=== PATIENT | female | born 1940 | race Caucasian/White ===

== ENCOUNTER 2017-09-22 06:45 | Day surgery (SDC) | payer MEDICARE ==
[2017-09-19 09:09] VITALS: BMI 23.1
[~2017-09-22 06:45] MED LIST: FLU VACC TS2017-18 (>65YR) 0.5 ML SYRINGE IM ONE
[2017-09-22 07:37] VITALS: BP 117/63; TEMP 97.2
--- NOTE | 2017-09-22 09:10 | RAD ---
3 VIEW CERVICAL SPINE SERIES: Date: 09/22/17 TECHNIQUE: Neutral lateral view, and lateral flexion and extension views performed per ordering physician reques t. Frontal view not provided, which limits assessment. INDICATION: Cervical stenosis, spondylosis. FINDINGS: There is reversal of normal cervical curvature, with focal kyphosis centered at C4. There is trace sp ondylolisthesis at C3-4 and mild retrolisthesis of C4 on C5. With extension positioning, there is cor rection of the trace C3-4 level spondylolisthesis. There is moderate multilevel degenerative change w hich is most pronounced at C4-5. IMPRESSION: 1. Reversal of normal cervical lordosis. 2. Trace spondylolisthesis of C3-4 with associated translational motion. POS: [facility]
--- NOTE | 2017-09-22 11:00 | CT ---
CT OF THE CERVICAL SPINE MYELOGRAM CT CERVICAL SPINE WITH CONTRAST: CLINICAL HISTORY: Cervical radiculopathy, chronic neck and back pain. COMPARISON: No prior imaging comparisons are available. FINDINGS: There is multilevel degenerative change throughout the cervical spine with reversed curvature and a f ocal kyphosis centered at C4. There is trace spondylolisthesis at C3-4 and moderate listhesis at C4- 5. Multilevel end plate degenerative change with associated sclerosis and degenerative cyst formatio n present most pronounced at C4-5. Degenerative hypertrophy at the atlantodental articulation is pre sent. No high-grade central canal stenosis at C1-2. C2-3: No significant central canal or neural foraminal stenosis. There is asymmetric moderate left facet degenerative hypertrophy. C3-4: Broad-based disk-osteophyte and uncinate process hypertrophy are present with mild osseous dyan rowing of the neural foramen. There is asymmetric moderate right degenerative facet hypertrophy. Mi ld ventral cord flattening and central canal narrowing present. C4-5: There is moderate central canal stenosis with ventral cord mass effect more notable on the rig ht due to a right asymmetric disk-osteophyte. There is also evidence of uncinate process hypertrophy which results in mild to moderate right and moderate left neural foraminal stenosis. C5-6: There is moderate central canal stenosis and ventral cord flattening due to a broad-based disk -osteophyte formation. There asymmetric right side uncinate process hypertrophy with moderate right and mild to moderate left foraminal stenosis. C6-7: There is no high-grade central canal stenosis. Uncinate process hypertrophy is present bilate rally with mild bilateral osseous narrowing of the neural foramen. C7-T1: No high-grade central canal or neural foraminal stenosis. IMPRESSION: Multilevel prominent degenerative change of the cervical spine as outlined above, which does result i n multilevel cord mass effect, central canal and neural foraminal stenosis. POS: [facility]
--- NOTE | 2017-09-22 11:06 | RAD ---
CERVICAL SPINE MYELOGRAM INDICATION: Cervical stenosis, spondylosis, chronic and back pain. PROCEDURE: After informed consent had been obtained, the patient was escorted to the interventional suite and pl aced on the procedural table. Network Engineer Administrator imaging was performed. The patient was placed into a prone posi tion. Skin on the low back was then prepped and draped in the standard sterile fashion and topical a nd regional soft tissue anesthesia was achieved with 1% lidocaine and sodium bicarbonate. Right int erlaminar L4-5 approach was selected, and a 22 gauge needle was uneventfully advanced into the thecal sac with clear color CSF. Subsequently, 10 cc [id number]-M300 was instilled into the thecal sac under r eal time fluoroscopy. Appropriate opacification of thecal sac demonstrated with imaging stored for c onfirmation. The needle was then removed from the patient. The patient tolerated the procedure well and was then transferred to CT to undergo subsequent myelogram. Reference separate report for full details. FLUORO DATA: 0.4 minutes intermittent fluoroscopy, 64 mGy*^m2. IMPRESSION: Technically successful cervical spine myelogram as detailed above. POS: [facility]
[2017-09-22] MEDS ORDERED: Iopamidol-M 300 61% 15 ML VIAL ONE (16:34)
== END 2017-09-22 10:10 | disposition home or self-care (01) ==
LOC: RAD 06:45
PROVIDERS: ATTEND Neurological Surgery
PROC: B01B1ZZ Fluoroscopy of Spinal Cord using Low Osmolar Contrast (ICD-10-PCS; principal; 2017-09-22)
DX: M48.02 Spinal stenosis, cervical region (principal); M47.12 Other spondylosis with myelopathy, cervical region; M54.9 Dorsalgia, unspecified; G89.29 Other chronic pain; I48.91 Unspecified atrial fibrillation; I34.1 Nonrheumatic mitral (valve) prolapse; Z79.82 Long term (current) use of aspirin; Z79.890 Hormone replacement therapy; Z79.899 Other long term (current) drug therapy; Z88.0 Allergy status to penicillin
CPT/HCPCS: 62302; 72040; 72126

== ENCOUNTER 2017-10-28 07:56 | Inpatient (IN) | payer MEDICARE ==
[2017-10-27 11:26] VITALS: BMI 20.1
--- NOTE | 2017-10-28 08:12 | HP ---
HISTORY OF PRESENT ILLNESS: Ms. Patel is a 77-year-old female that presents with neck pain and wors ening balance. The pain in her neck radiates from between her shoulder blades and also occasionally goes to her chest. She denies any cervical radicular symptoms in the arms and hands and has good str ength. Her tandem gait is off and has been worsening over the past few weeks. She is running into d oors and stumbling a lot. When she looks up she feels very dizzy. Her pain is made worse with activ ity and made somewhat better with analgesics. The patient has not had any injections in the cervical spine or physical therapy for the cervical spine. IMAGING: Flexion, extension x-rays and CT myelogram at [facility]. REVIEW OF SYSTEMS: Ten-point review of systems completed, is otherwise negative unless stated in the above HPI. PAST MEDICAL HISTORY: Atrial fibrillation, mitral valve prolapse. PAST SURGICAL HISTORY: 1. Left knee replacement in 2012. 2. Cataracts 1994. 3. Hysterectomy in 1985. 4. Right hand surgery in 2010. FAMILY HISTORY: Father is . Mother is . Siblings are alive. SOCIAL HISTORY: The patient is a nonsmoker, no alcohol use or illicit drug use. MEDICATIONS: 1. Propanetriol HCL 150 mg tablet oral. 2. Aspirin 81 mg delayed release 1 tablet orally once a day. 3. Premarin 0.625 mg/gram cream vaginal. 4. Multivitamin adult tablet orally. 5. Vitamin D3 2000 unit capsule 1 capsule orally once a day. 6. Vitamin B12 500 mg tablet 2 tablets orally once a day. ALLERGIES: PENICILLIN V, POTASSIUM causes red welts with swelling. PHYSICAL EXAMINATION: HEENT: Normocephalic, atraumatic. Hearing intact. Moist mucous membranes. Trachea is midline. EYES: Pupils are equal and reactive to light. Extraocular muscles are intact. Sclerae is white, no nicteric. CARDIOVASCULAR: The patient has regular rate and rhythm, normal S1, S2 heart sounds, no distal cyano sis or clubbing. MUSCULOSKELETAL: Upper extremity, 5/5 strength bilateral biceps and triceps. Full range of motion. No sensory deficits bilaterally. The patient gets dizzy with extension of her neck, is positive for Lhermitte's, +3 hyperreflexic in the upper extremities bilaterally. RESPIRATORY: The patient has bilateral symmetric chest rise. Appears to have no shortness of breath . NEUROLOGIC: Cranial nerves II-XII are grossly intact. Speech is fluent. She answers my questions a ppropriately. Her tandem gait is off balance. IMPRESSION: 1. Degenerative cervical spine stenosis. 2. Cervical myelopathy. PLAN: Dr. Lopez offered a stabilization of the kyphosis and decompressive cervical spine with a C3-4, C4-5, C5-C6 ACDF. Informed consent was given. We discussed the indications, risks, benefits, alternatives, and expected results from surgery. The risks discussed included, but were not limited to bleeding, infection, CSF leak, nerve damage, weakness, swallowing trouble, feeding tube placement, tracheal injury, esophageal injury, vocal cord injury, spinal cord injury, incontinence, paralysis, ventilator dependence, wheelchair dependence, stroke, loss of vision. Carotid artery injury, jugular vein injury, hardware misplacement, cardiopulmonary complications of anesthesia or . Long-term complications discussed included, but were not limited to hardware failure and degeneration of the s urrounding disk. She understands the risk and is willing to proceed for surgery.
[2017-10-28] MEDS ORDERED: Thrombin 5000 UNITS/5 ML VIAL ONE (08:31)
[2017-10-28] MEDS ORDERED: Sodium Chloride 0.9% 20 ML ONE (08:31)
[2017-10-28] MEDS ORDERED: Clindamycin/D5W 900 mg/50 ml Premix Bag ONE (08:42)
[2017-10-28] MEDS ORDERED: Levofloxacin 500 mg/D5W 100 ml Premix Bag ONE (08:42)
[2017-10-28 08:45] LABS: #Eosinphils 0.2 thou/uL (0.0-0.7); #Lymphocytes 1.8 thou/uL (1.20-3.40); #Monocytes 0.7 thou/uL (0.11-0.59); #Neutrophils 3.1 thou/uL (1.40-6.50); %Basophils 0.4 % (0.0-1.0); %Lymphocytes 30.9 % (21.0-51.0); %Monocytes 11.9 % (0.0-10.0); %Neutrophils 52.8 % (42.0-75.0); Hemoglobin 14.9 g/dL (12.0-16.0); Mean Corpuscular HGB CONC 32.8 g/dL (32.0-36.0); Mean Corpuscular Hemoglobin 32.3 pg (27.0-31.0); Mean Corpuscular Volume 98.5 fl (81.0-99.0); Mean Platelet Volume 7.9 fL (7.4-10.4); Platelet Count 215 thou/uL (130-400); RBC Distribution Width 11.8 % (11.5-14.5); Red Blood Cell (RBC) Count 4.62 mill/uL (4.20-5.40); White Blood Cell (WBC) Count 5.9 thou/uL (4.8-10.8)
[2017-10-28 08:51] LABS: INR-International Normal Ratio 0.9; PTT 27.9 SEC (22.9-36.1); Prothrombin Time 12.7 SEC (12.0-14.7)
[2017-10-28] MEDS ORDERED: Fentanyl 100 MCG/2 ML VIAL ONE ×2 (09:02→13:08)
[2017-10-28 09:12] LABS: Anion Gap 12 mmol/L (10-20); BUN (Urea Nitrogen) 14 mg/dL (9.8-20.1); Calc. Creatinine Clearance 46 mL/min (70-130); Calcium 10.1 mg/dL (7.8-10.44); Carbon Dioxide 30 mmol/L (23-31); Chloride 101 mmol/L (98-107); Estimated GFR-MDRD 61; Glucose 107 mg/dL (83-110); Potassium 4.3 mmol/L (3.5-5.1); Sodium 139 mmol/L (136-145)
[2017-10-28] MEDS ORDERED: Morphine Sulfate 2 MG/ML SYRINGE SLOW IVP PRN (10:12)
[2017-10-28] MEDS ORDERED: Promethazine HCl 25 MG/ML VIAL IM PRN (10:12)
[2017-10-28] MEDS ORDERED: Promethazine HCl 25 MG/ML VIAL SLOW IVP PRN (10:12)
[2017-10-28] MEDS ORDERED: Ondansetron HCl/PF 4 MG/2 ML Vial IVP PRN ×2 (10:12→12:44)
[2017-10-28] MEDS ORDERED: Ondansetron HCl/PF 4 MG/2 ML Vial ONE (12:34)
[2017-10-28] MEDS ORDERED: Acetaminophen/Codeine 30-300mg Tablet PO PRN ×2 (12:44)
[2017-10-28] MEDS ORDERED: Bisacodyl 10 MG SUPP PR PRN (12:44)
[2017-10-28] MEDS ORDERED: Morphine 4 MG/ML VIAL SLOW IVP PRN (12:44)
[2017-10-28] MEDS ORDERED: tiZANidine HCl 4 MG TAB PO PRN (12:44)
[2017-10-28] MEDS ORDERED: Dexamethasone 20 MG/5 ML VIAL ONE (13:21)
[2017-10-28] MEDS ORDERED: Lidocaine 1% PF 5 ML VIAL ONE (13:21)
[2017-10-28] MEDS ORDERED: Glycopyrrolate 0.2 MG/ML 5 ML SYRINGE ONE (13:21)
[2017-10-28] MEDS ORDERED: diphenhydrAMINE 50 MG/ML VIAL ONE (13:21)
[2017-10-28] MEDS ORDERED: Ketorolac Tromethamine 30 MG/ML VIAL ONE (13:21)
[2017-10-28] MEDS ORDERED: PHENYLEPHRINE-NS 100 MCG/ML 10 ML SYRINGE ONE (13:21)
[2017-10-28] MEDS ORDERED: ePHEDrine/0.9% NaCl/PF SYRINGE 50 mg/10 ml ONE (13:21)
[2017-10-28] MEDS ORDERED: PROPOFOL 200 MG/20 ML VIAL ONE (13:21)
--- NOTE | 2017-10-28 14:10 | OP ---
DATE OF PROCEDURE: 10/28/2017 SURGEON: Connor Lopez M.D. AIRPLANE CABIN ATTENDANT: Mohan Bhardwaj PA-C. PREOPERATIVE INDICATION: Prevent further neurological deterioration. 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 OPERATIVE PROCEDURE: Anterior cervical diskectomy, intervertebral arthrodesis, placement of interver tebral biomechanical device, anterior cervical plating C3-4, C4-C5, C5-C6, local morselized autograft , morselized allograft, operating microscope. PREOPERATIVE MEDICATION: Ancef 2 grams IV. DRAIN NUMBER: One. DRAIN TYPE: 10 Greek Bonifacio. OPERATIVE DICTATION: The patient was brought to the operating room. General endotracheal anesthesia was induced. The patient was positioned supine on the operating table, keeping the neck in normal a natomic alignment, the head was supported by gel-filled donut shaped head rest and a lateral fluoro r adiograph was used to plan our incision. The right side of the neck was sterilely prepped and draped . We opened with a 15 blade knife and controlled bleeding with bipolar cautery. We dissected sharpl y to the platysma and then we cut this muscle in line with our incision. We continued our dissection medial to the sternocleidomastoid, lateral to the trachea and esophagus until we arrived at the prev ertebral space. We placed a marker at C4-5 and took a lateral fluoro radiograph to confirm the level s upon which we were operating. We then elevated the longus colli muscles off the anterior surface o f C3, C4, C5, and C6. We placed self-retaining retractors beneath those muscles. We placed distract ion pins at C3 and C5. We distracted across both of the intervening interspaces. We incised the int erspaces with a 15 blade knife and removed disk contents using curettes and rongeurs. The operative microscope was brought in the field. Under microscopic navigation using microsurgical techniques, we removed the remainder of the interver tebral disks. We accessed the ventral epidural space with a micro curet using Kerrison rongeurs, we removed the posterior longitudinal ligament across the entire interspace from one nerve root all the way to the other nerve root and the dura was free and clear of any compression at both C3-4 and C4-5 after that. We prepared the endplates for grafting and measured the height of the interspace with a bone rasp. We brought two separate PEEK intervertebral grafts into the field. These were 6 mm in he ight. There were loaded with demineralized bone matrix and morselized autograft. The autograft was from osteophytectomy done during our decompression. The osteophytes were cleaned of all soft tissue attachments and morcellized into the demineralized bone matrix as our fusion substrate. The two PEEK grafts were advanced into the interspaces under radiographic guidance to the appropriate depth. Dis traction pins were removed. We then moved our lateral retractors under the longus colli muscles at C 5-6. We placed distraction pins at C6 and C5 and distracted across that interspace. We incised the interspace with a 15 blade knife and we removed disk contents using curettes and rongeurs. We contin ued under the operating microscope to remove the remainder of the intervertebral disk. We accessed t he ventral epidural space with a micro curet. Using Kerrison rongeur we removed the posterior longit udinal ligament and osteophytes across the entire interspace at C5-6 until we had decompressed the du ra and both neural foramina. We prepared the endplates for grafting and measured the height of the i nterspace to 7 mm. A 7 mm PEEK intervertebral graft was loaded with demineralized bone matrix and mo rselized autograft and advanced into the interspace under radiographic guidance to the appropriate de pth. Distraction pins were removed and the operative microscope taken back out of the field. We rem mickie anterior osteophytes from the vertebral segments from C3 all the way to C6. We brought a 48 mm anterior cervical plate into the field and molded the plate to fit precisely on the anterior surface of each of the vertebral bodies. We drilled captain/airline pilot holes through the plate into the vertebral segment s and affixed the plate using 14 mm screws. We used variable angle screws at C3, C4, and C5 and fixe d angle screws at C6. We took AP and lateral fluoro radiographs to confirmed adequate position of ou r instrumentation. We irrigated copiously with bacitracin irrigation. We placed a drain in the vent ral epidural space and tunneled it inferiorly under the platysma and through a separate stab incision . We closed the wound in anatomic layers. We applied a sterile dressing. This was a clean case and no contamination.
[2017-10-28] MEDS: Sodium Chloride 0.9% 1,000 ML IV SCH (16:49)
[2017-10-28] MEDS: Clindamycin/D5W 900 MG in Premix Bag 1 BAG IVPB SCH (16:50)
[2017-10-28] MEDS: Propafenone HCl 150 MG TAB PO SCH ×2 (16:50→22:08)
[2017-10-29] MEDS: Morphine 4 MG/ML VIAL SLOW IVP PRN ×2 (00:02→05:31)
[2017-10-29] MEDS: Clindamycin/D5W 900 MG in Premix Bag 1 BAG IVPB SCH ×3 (00:03→16:30)
[2017-10-29] MEDS: Sodium Chloride 0.9% 1,000 ML IV SCH ×2 (05:43→15:15)
[2017-10-29] MEDS ORDERED: traMADol HCl 50 MG TAB PO PRN ×2 (06:44)
--- NOTE | 2017-10-29 07:30 | PRG ---
DATE OF SERVICE: 10/29/2017 I saw Ms. Patel this morning after a 3-level ACDF for myelopathy. Her hands are working well. The neck feels stretched, as expected. Ms. Patel is having some difficulty with hoarseness. On examination, Ms. Patel does have hoarseness. I watched her swallow some water and 2 sips went do wn, although she had to clear her throat afterwards. She seemed to be having some discomfort when sw allowing. The drain has had some minimal output, it will be removed today. The plan is to have her tuck her chin for all eating. She is going to chew her food in small bites well before swallowing. I gave her a dose of steroids today we may use a Medrol Dosepak on dismissal. If she is eating well, ambulating, going to the bathroom, dressing herself and safe for activities of daily living she can be discharged after lunch today.
[2017-10-29] MEDS: Dexamethasone 10 MG in Sodium Chloride 0.9% 50 ML IVPB SCH (08:58)
[2017-10-29] MEDS: Pantoprazole 40 MG VIAL IVP SCH (08:59)
[2017-10-29] MEDS: Propafenone HCl 150 MG TAB PO SCH ×3 (08:59→21:24)
[2017-10-29] MEDS: Cyanocobalamin (Vitamin B-12) 1,000 MCG TAB PO SCH (09:00)
[2017-10-29] MEDS: Multivitamin W/ Minerals 1 TAB PO SCH (09:01)
--- NOTE | 2017-10-29 21:24 | PRG ---
DATE OF SERVICE: 10/29/2017 SUBJECTIVE: Ms. Patel is a 77-year-old female I saw in her room this morning. She is one-day out from an anterior cervical diskectomy and fusion from C3 through C7. Her hands feel more normal this morning and her gait seems more steady. Over the course of the day, she has been having some trouble swallowing. She was given a dose of dexamethasone 10 mg this morning and was considering discharge later in the afternoon. After considering her swallowing problems, although her oxygen saturation has been normal, she decided to stay tonight. I will send her home tomorrow with Medrol Dosepak as well as pain medication and muscle relaxants. We will have her wear the cervical collar for 8 weeks status post surgery. She tried swallowing some applesauce today, which with success; however, she is having trouble swallowing formed foods including the potatoes and potato soup. She is also having some trouble drinking fluids. I will check on her tomorrow and see if there is any improvement in her dysphagia. If there are any further questions, please feel free to contact Neurosurgery. LISA
[2017-10-30] MEDS: Clindamycin/D5W 900 MG in Premix Bag 1 BAG IVPB SCH (00:22)
[2017-10-30] MEDS: Sodium Chloride 0.9% 1,000 ML IV SCH ×2 (05:12→20:10)
--- NOTE | 2017-10-30 07:47 | PRG ---
DATE OF SERVICE: 10/30/2017 NEUROSURGERY PROGRESS NOTE SUBJECTIVE: This gentleman is 2 days out from 3-level ACDF for cervical stenosis and myelopathy. Sh viri has some hoarseness and some swallowing difficulty after surgery. She has a very small neck and ma y be more sensitive to retractors stretching her laryngeal nerves some. She has a little bit of refl ux pain where given her atrial fibrillation, cardiac history, we will ensure with an EKG and troponin s that were not missing any worrisome cardiac event. For swallowing difficulty, she has been able to keep 1.5-2 liters of fluid down yesterday and she is moving on to more soft foods this morning and s he is getting some calories with food, drinking liquids and then we are going to send her home with a Medrol Dosepak. She is sensitive to steroids as far as her stomach and will need some GI prophylaxi s. I would like to use her collar anytime she is sitting up or out of bed with the exceptions of eat ing and showering. We went over wound care, activity restrictions and followup arrangements.
[2017-10-30] MEDS: Pantoprazole 40 MG VIAL IVP SCH (08:15)
[2017-10-30] MEDS: Propafenone HCl 150 MG TAB PO SCH ×3 (08:15→20:10)
[2017-10-30] MEDS: Cyanocobalamin (Vitamin B-12) 1,000 MCG TAB PO SCH (08:16)
[2017-10-30] MEDS: Multivitamin W/ Minerals 1 TAB PO SCH (08:16)
[2017-10-30 10:27] LABS: Troponin I Less than 0.010 ng/mL (< 0.028)
[2017-10-30] MEDS: Dexamethasone 10 MG in Sodium Chloride 0.9% 50 ML IVPB SCH (10:55)
--- NOTE | 2017-10-30 14:47 | CON ---
DATE OF CONSULTATION: 10/30/2017 REASON FOR CONSULTATION: Atrial fibrillation. REFERRING PROVIDER: Anna Lopez M.D. HISTORY OF PRESENT ILLNESS: Ms. Patel is a very pleasant 77-year-old woman with a previous history of paroxysmal atrial fibrillation. She has been seen and evaluated by Dr. Marino in the past. Vanessa meredith recently had a neck surgery by Dr. Lopez. She was doing well and ready to go home when she sta [place] she developed atrial fibrillation. She states it began yesterday. She has no other symptoms. S he had an EKG performed that showed atrial fibrillation with rapid ventricular response. PAST MEDICAL AND SURGICAL HISTORY: Atrial fibrillation, mitral valve prolapse, cataract surgery, hys terectomy, right hand surgery and left knee surgery. SOCIAL HISTORY: No current tobacco or alcohol use. CURRENT MEDICATIONS: Include aspirin, propafenone, Premarin, multivitamin and vitamin D. ALLERGIES: PENICILLIN and POTASSIUM. REVIEW OF SYSTEMS: Ten-point review of systems is reviewed and as above, otherwise negative. PHYSICAL EXAMINATION: GENERAL: The patient is a pleasant female who is in no acute distress. The patient appears her stat ed age. VITAL SIGNS: Blood pressure 178/79, pulse 108 and temperature 98. NEUROLOGIC: The patient is alert and oriented x3 with no focal neurologic deficits. HEENT: Sclerae without icterus. Mouth has moist mucous membranes with normal pallor. NECK: No JVD. Carotid upstroke brisk. No bruits bilaterally. LUNGS: Clear to auscultation with unlabored respirations. BACK: No scoliosis or kyphosis. CARDIAC: Irregularly irregular. ABDOMEN: Soft, nontender, nondistended. No peritoneal signs present. No hepatosplenomegaly. No ab normal striae. EXTREMITIES: 2+ femoral and 2+ dorsalis pedis pulses. No cyanosis, clubbing, or edema. SKIN: No gross abnormalities. PERTINENT LABORATORY DATA: Hemoglobin 14.9. Creatinine is 0.89. IMPRESSION: Atrial fibrillation with rapid ventricular response. RECOMMENDATIONS: We will transfer to tele and place on IV Cardizem for better rate control. We will then supplement with p.o. Cardizem. She will likely convert back to normal. We would continue with propafenone as prescribed. Anticipate discharge home in the next 1-2 days. Avoid anticoagulation t herapy. She has been told by Dr. John to not restart aspirin until Friday. At this point, anti coagulants would certainly be contraindicated given recent neck surgery.
--- NOTE | 2017-10-31 07:03 | EKG ---
Test Reason : Blood Pressure : / mmHG Vent. Rate : 135 BPM Atrial Rate : 141 BPM P-R Int : 000 ms QRS Dur : 084 ms QT Int : 294 ms P-R-T Axes : 000 -50 098 degrees QTc Int : 441 ms Atrial fibrillation with rapid ventricular response Left anterior fascicular block Minimal voltage criteria for LVH, may be normal variant Septal infarct , age undetermined Abnormal ECG No previous ECGs available Confirmed by STEVE CHANDLER ([id number]) on 10/31/2017 7:03:17 AM Referred By: HARSHAL Confirmed By:STEVE CHANDLER
--- NOTE | 2017-10-31 07:38 | PRG ---
DATE OF SERVICE: 10/31/2017 NEUROSURGERY PROGRESS NOTE SUBJECTIVE: Ms. Patel is 3 days out from a 3-level ACDF for myelopathy. Yesterday, she was ready t o go home, but an EKG showed atrial fibrillation with rapid ventricular response. Cardiology was con sulted and had neuromonitoring overnight. She is feeling better this morning. Her swallowing is not back to normal, but her voice is already improved. She did get food down yesterday. She was swallo wing well and her intake was reasonable. Her neurological examination is stable. If Cardiology agrees to be stable for discharge today, we are going to give her Medrol Dosepak and so me antacid to take over the next 7 days as it tapers off. She will keep her collar on whenever she i s sitting or standing at home for the next 8 weeks at least.
[2017-10-31] MEDS: Sodium Chloride 0.9% 1,000 ML IV SCH (08:50)
[2017-10-31] MEDS: Pantoprazole 40 MG VIAL IVP SCH (09:00)
[2017-10-31] MEDS: Propafenone HCl 150 MG TAB PO SCH ×2 (09:00→15:11)
[2017-10-31] MEDS: Multivitamin W/ Minerals 1 TAB PO SCH (09:00)
[2017-10-31] MEDS: Dexamethasone 10 MG in Sodium Chloride 0.9% 50 ML IVPB SCH (09:00)
[2017-10-31] MEDS: Cyanocobalamin (Vitamin B-12) 1,000 MCG TAB PO SCH (09:00)
--- NOTE | 2017-10-31 09:23 | PRG ---
DATE OF SERVICE: 10/31/2017 SUBJECTIVE: Ms. Patel is a 77-year-old female who is status post 3 days from ACDF 3 level. She was transferred from the surgical unit yesterday to the telemetry unit, observed by Cardiology for new o nset paroxysmal atrial fibrillation with RVR. She was started on Cardizem. This morning, there are no new neurologic deficits on exam and she is feeling much better. We will leave it up to Cardiology to clear her for discharge. From neurologic standpoint, she is ready. I discussed wound care with her and Protonix and Medrol Dosepak, intimate the [facility] for her upon discharge. If there are any f urther questions, please feel free to contact Neurosurgery.
--- NOTE | 2017-10-31 10:03 | PRG ---
DATE OF PROGRESS: 10/31/2017 SUBJECTIVE: Ms. Patel is doing well. She converted back to sinus rhythm. No current complaints. OBJECTIVE: VITAL SIGNS: Blood pressure 160/70, pulse 87, temperature 98. LUNGS: Clear to auscultation. CARDIAC: Regular rate and rhythm. ABDOMEN: Soft, nontender, nondistended. EXTREMITIES: No edema. IMPRESSION: Paroxysmal atrial fibrillation. RECOMMENDATIONS: Ms. Patel appears to be back in sinus rhythm. Would continue propafenone at previ ous dose. We will add low dose beta brittney therapy given that she is on a class 1C agent. She is o jen from my standpoint to discharge home. Anticoagulation recommendations per her primary cardiologi st. I did ask her to follow up with him within the next week. No anticoagulation or antiplatelet th erapy currently recommended given recent neck surgery.
[2017-10-31 11:56] VITALS: BP 141/67
[2017-10-31 15:34] VITALS: TEMP 97
--- NOTE | 2017-11-03 11:26 | DIS ---
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 OPERATIVE PROCEDURES: Anterior cervical diskectomy, intervertebral arthrodesis, placement of interve rtebral biomechanical device and anterior cervical plating of C3-C6. Local morselized autograft, mor selized allograft, and operating microscope. HOSPITAL COURSE: Ms. Patel is a 77-year-old female who had cervical spondylitic myelopathy. Postop eratively, she developed paroxysmal atrial fibrillation after an EKG was performed and showed atrial fibrillation with rapid ventricular response. Cardiology was consulted. Dr. Abraham saw her in [facility] and started Cardizem and she was prescribed metoprolol. Her atrial fibrillation with rapi d ventricular response, resolved and she did well upon discharge. There are no other acute events du ring her hospital stay. Her incision was clean, dry, and intact with subcutaneous stitches and Steri -Strips. She was able to ambulate with physical therapy and with the nurses with no troubles. She i s able to tolerate regular diet and her pain was well controlled with oral pain medication. On physi lisa examination, she had good strength in her upper and lower extremities bilaterally. Mild weakness in the upper extremities bilaterally with tingling and numbness in bilateral upper extremities in no particular dermatome. This is starting to resolve since her surgery. There are no acute or new sondra rologic deficits. There are no focal motor or sensory deficits. If there are any further questions, please feel free to contact Neurosurgery. Home medication list i s on hospital summary of the patient.
== END 2017-10-31 15:34 | disposition home or self-care (01) | DRG 472 ==
LOC: SURG A 08:28 → SURG B 14:19 → 2NO 10-30 16:10
PROVIDERS: ADMIT Neurological Surgery; ATTEND Neurological Surgery
PROC: 0RG20A0 Fusion of 2 or more Cervical Vertebral Joints with Interbody Fusion Device, Anterior Approach, Anterior Column, Open Approach (ICD-10-PCS; principal; 2017-10-28)
PROC: 0RG2070 Fusion of 2 or more Cervical Vertebral Joints with Autologous Tissue Substitute, Anterior Approach, Anterior Column, Open Approach (ICD-10-PCS; 2017-10-28)
PROC: 0RT30ZZ Resection of Cervical Vertebral Disc, Open Approach (ICD-10-PCS; 2017-10-28)
DX: M48.02 Spinal stenosis, cervical region (principal); M47.12 Other spondylosis with myelopathy, cervical region; M50.00 Cervical disc disorder with myelopathy, unspecified cervical region; I48.0 Paroxysmal atrial fibrillation; R13.10 Dysphagia, unspecified
CPT/HCPCS: 36415; 76001; 80048; 82553; 84484; 85025; 85610; 85730; 93005; 93010; 96374; A4216; C1713; C1776; C9113; J0131; J1100; J1200; J1885; J1956; J2001; J2270; J2405; J2704; J3010; J3490; J7050

== ENCOUNTER 2018-01-20 17:36 | Emergency (ER) | payer MEDICARE ==
--- NOTE | 2018-01-20 19:07 | ULT ---
RIGHT LOWER EXTREMITY VENOUS DOPPLER: 01/20/18 HISTORY: Evaluate for DVT. Redness and edema and pain. COMPARISON: None. TECHNIQUE: Real time jewell scale, color doppler and spectral analysis of the right lower extremity venous system was performed. The common femoral, femoral, proximal portions of the greater saphenous and deep femor al vein as well as the popliteal and posterior tibial veins are interrogated. Normal flow, augmentation and compression. IMPRESSION: No deep venous thrombosis. POS: [facility]
== END 2018-01-20 18:55 | disposition home or self-care (01) ==
LOC: ERS 17:36
DX: R60.0 Localized edema (principal); I48.91 Unspecified atrial fibrillation; Z79.82 Long term (current) use of aspirin; Z79.01 Long term (current) use of anticoagulants; Z79.899 Other long term (current) drug therapy

== ENCOUNTER 2018-09-03 01:24 | Outpatient (CLI) | payer MEDICARE ==
[2018-09-03 11:24] LABS: Hemoglobin 13.2 g/dL (12.0-16.0); Mean Corpuscular HGB CONC 31.2 g/dL (32.0-36.0); Mean Corpuscular Hemoglobin 30.4 pg (27.0-31.0); Mean Corpuscular Volume 97.5 fL (78.0-98.0); Mean Platelet Volume 8.3 fL (7.4-10.4); Platelet Count 209 thou/uL (130-400); RBC Distribution Width 12.1 % (11.5-14.5); Red Blood Cell (RBC) Count 4.33 mill/uL (4.20-5.40); White Blood Cell (WBC) Count 4.8 thou/uL (4.8-10.8)
[2018-09-03 11:55] LABS: ALT (SGPT) 11 U/L (8-55); AST (SGOT) 18 U/L (5-34); Albumin 4.2 g/dL (3.4-4.8); Alkaline Phosphatase 90 U/L (40-150); Anion Gap 9 mmol/L (10-20); BUN (Urea Nitrogen) 14 mg/dL (9.8-20.1); Bilirubin, Direct 0.3 mg/dL (0.1-0.3); Calc. Creatinine Clearance 0 mL/min (70-130); Calcium 9.9 mg/dL (7.8-10.44); Carbon Dioxide 31 mmol/L (23-31); Chloride 103 mmol/L (98-107); Estimated GFR-MDRD 63; Globulin 2.9 g/dL (2.4-3.5); Glucose 97 mg/dL (83-110); Potassium 4.4 mmol/L (3.5-5.1); Protein, Total 7.1 g/dL (6.0-8.3); Sodium 139 mmol/L (136-145)
== END 2018-09-03 01:25 | disposition home or self-care (01) ==
LOC: LABBT 01:24
PROVIDERS: ATTEND Surgery
DX: Z01.818 Encounter for other preprocedural examination (principal); K80.20 Calculus of gallbladder without cholecystitis without obstruction
CPT/HCPCS: 80053; 80076; 85027; 93005; 93010

== ENCOUNTER 2018-09-07 05:39 | Day surgery (SDC) | payer MEDICARE ==
[2018-09-03 10:39] VITALS: BMI 19.3
[2018-09-07] MEDS ORDERED: cefOXitin Sodium/Dextrose,Iso 2 GM in Premix Bag 1 BAG IVPB SCH (06:30)
[2018-09-07 06:39] LABS: INR-International Normal Ratio 1.1; PTT 27.8 SEC (22.9-36.1); Prothrombin Time 14.4 SEC (12.0-14.7)
[2018-09-07] MEDS ORDERED: Bupivacaine HCl 0.5%/Epinephrine 1:200,000/PF 30 ml Vial ONE (06:52)
[2018-09-07] MEDS ORDERED: Fentanyl 100 MCG/2 ML VIAL ONE ×2 (07:17→09:07)
--- NOTE | 2018-09-07 09:40 | OP ---
DATE OF PROCEDURE: 09/07/2018 PREOPERATIVE DIAGNOSIS: Chronic cholecystitis. POSTOPERATIVE DIAGNOSIS: Chronic cholecystitis. PROCEDURE: Laparoscopic cholecystectomy. ANESTHESIA: General. ESTIMATED BLOOD LOSS: Minimal. COMPLICATIONS: None. SPECIMEN: Gallbladder. FINDINGS: Chronic cholecystitis. PROCEDURE IN DETAIL: The patient was taken to the operating room and laid supine on the operating room table. After general anesthetic was obtained, the abdomen was prepped and draped in a sterile fashion. A curved incision was made below the umbilicus. Cautery was used to dissect down to the umbilical fascia. Umbilical fascia was incised and held up using a Kenny. The abdominal cavity was entered using a Kenia clamp. Holding stitch of Vicryl was placed on each side of the fascia. Maldonado trocar was placed. High-flow pneumoperitoneum was obtained. An upper midline 5 mm port and 2 right upper quadrant 5 mm ports were placed under direct camera visualization. The gallbladder was retracted from the gallbladder fossa. The peritoneum of the gallbladder was opened anteriorly and posteriorly. The critical view triangle was seen showing only the cystic duct and cystic artery branching from medial to lateral. There were no other branching structures. Two clips were placed proximally on the cystic duct and one laterally. It was cut using laparoscopic scissors. The cystic artery was taken in the same way. Electrocautery was then used to dissect the gallbladder out of the gallbladder fossa. The gallbladder was placed in an Endo catch bag and brought out through the Maldonado. There was no bleeding or bile in the liver bed. The cystic duct stump and cystic artery stump were intact, without evidence of extravasation or bleeding. All port sites were infiltrated using local anesthesia. All ports were removed under camera visualization. Pneumoperitoneum was let down. The Vicryl was used to close the fascial defect below the umbilicus. All incisions were irrigated and closed using 4-0 Monocryl and Dermabond. The patient was en route to Recovery in stable condition. All instrument counts, needle counts and lap counts were correct. Job ID: [id number]
[2018-09-07] MEDS ORDERED: HYDROcodone/Acetaminophen 5/325 mg Tablet ONE (11:12)
[2018-09-07] MEDS ORDERED: Metoclopramide HCl 10 MG/2 ML VIAL ONE (15:00)
[2018-09-07] MEDS ORDERED: Rocuronium Bromide 10 MG/ML (10ML VIAL) ONE (15:00)
[2018-09-07] MEDS ORDERED: PROPOFOL 200 MG/20 ML VIAL ONE (15:00)
[2018-09-07] MEDS ORDERED: Ketorolac Tromethamine 30 MG/ML VIAL ONE (15:00)
[2018-09-07] MEDS ORDERED: Dexamethasone 20 MG/5 ML VIAL ONE (15:00)
[2018-09-07] MEDS ORDERED: Glycopyrrolate 0.2 MG/ML 5 ML SYRINGE ONE (15:00)
[2018-09-07] MEDS ORDERED: Ondansetron PF 4 MG/2 ML Vial ONE (15:00)
[2018-09-07] MEDS ORDERED: Lidocaine 1% PF 5 ML VIAL ONE (15:00)
[2018-09-07] MEDS ORDERED: PHENYLEPHRINE-NS 100 MCG/ML 10 ML SYRINGE ONE (15:00)
== END 2018-09-07 11:46 | disposition home or self-care (01) ==
LOC: SDC 05:39
PROVIDERS: ATTEND Surgery
PROC: 0FT44ZZ Resection of Gallbladder, Percutaneous Endoscopic Approach (ICD-10-PCS; principal; 2018-09-07)
DX: K81.1 Chronic cholecystitis (principal); I48.91 Unspecified atrial fibrillation; I34.1 Nonrheumatic mitral (valve) prolapse; Z79.01 Long term (current) use of anticoagulants; Z79.82 Long term (current) use of aspirin; Z79.899 Other long term (current) drug therapy; Z88.0 Allergy status to penicillin
CPT/HCPCS: 36415; 85610; 85730; 88304; J0670; J1100; J1885; J2001; J2405; J2704; J2765; J3010

== ENCOUNTER 2019-07-06 10:37 | Outpatient (CLI) | payer MEDICARE ==
--- NOTE | 2019-07-06 11:39 | BD ---
BONE DENSITOMETRY USING DEXA: HISTORY: Post menopausal screening for osteoporosis. FINDINGS LUMBAR SPINE BMD (g/cm2) T-SCORE Z-SCORE L1 0.664 -3.0 -0.6 L2 0.847 -1.6 1,0 L3 0.899 -1.7 1.1 L4 0.844 -2.0 0.9 TOTAL 0.810 -2.2 0.6 BMD (g/cm2) T-SCORE Z-SCORE NECK 0.602 -2.4 0.1 TOTAL 0.744 -1.6 0.5 The ten year fracture risk for a major osteoporotic fracture is 15% and for a hip fracture is 4.8%. IMPRESSION: Osteopenia. POS: NICHO
--- NOTE | 2019-07-23 15:42 | MMO ---
Bilateral MAMMO Bilat Screen [facility]. CLINICAL HISTORY: Patient is 79 years old and is seen for screening. The patient has no family history of breast cancer. The patient has no personal history of cancer. VIEWS: The views performed were: bilateral craniocaudal with tomosynthesis; bilateral mediolateral oblique with tomosynthesis; and bilateral exaggerated craniocaudal. FILMS COMPARED: The present examination has been compared to a prior imaging study performed at [facility] on 04/04/2017. This study has been interpreted with the assistance of computer-aided detection. MAMMOGRAM FINDINGS: The breasts are heterogeneously dense, which could obscure a lesion on mammography. There are benign appearing and vascular calcifications seen in both breasts. There are no suspicious masses, suspicious calcifications, or new areas of architectural distortion. IMPRESSION: THERE IS NO MAMMOGRAPHIC EVIDENCE OF MALIGNANCY. A ROUTINE FOLLOW-UP MAMMOGRAM IN 1 YEAR IS RECOMMENDED. THE RESULTS OF THIS EXAM WERE SENT TO THE PATIENT. ACR BI-RADS Category 2 - Benign finding MAMMOGRAPHY NOTE: 1. A negative mammogram report should not delay a biopsy if a dominant of clinically suspicious mass is present. 2. Approximately 10% to 15% of breast cancers are not detected by mammography. 3. Adenosis and dense breasts may obscure an underlying neoplasm. Reported by: ANNA ANTHONY MD Electonically Signed: [id number]
== END 2019-07-06 10:38 | disposition home or self-care (01) ==
LOC: BICMAMMO 10:37
PROVIDERS: ATTEND Internal Medicine Rheumatology
DX: Z12.31 Encounter for screening mammogram for malignant neoplasm of breast (principal); M81.0 Age-related osteoporosis without current pathological fracture; M85.80 Other specified disorders of bone density and structure, unspecified site
CPT/HCPCS: 77063; 77067; 77080

== ENCOUNTER 2020-12-20 14:35 | Outpatient (CLI) | payer MEDICARE | END 2020-12-20 14:36 | disposition home or self-care (01) | LOC: BICRAD 14:35 | PROVIDERS: ATTEND Anesthesiology Pain Medicine | DX: M43.16 Spondylolisthesis, lumbar region (principal); M47.816 Spondylosis without myelopathy or radiculopathy, lumbar region | CPT/HCPCS: 72110 ==

== ENCOUNTER 2022-09-05 12:19 | Outpatient (CLI) | payer MEDICARE | END 2022-09-05 12:20 | disposition home or self-care (01) | LOC: BICCT 12:19 | PROVIDERS: ATTEND Anesthesiology Pain Medicine | DX: M48.02 Spinal stenosis, cervical region (principal); M47.814 Spondylosis without myelopathy or radiculopathy, thoracic region; M47.812 Spondylosis without myelopathy or radiculopathy, cervical region; Z98.890 Other specified postprocedural states | CPT/HCPCS: 72125; 72128 ==

== ENCOUNTER 2023-08-26 11:56 | Outpatient (CLI) | payer MEDICARE ==
[~2023-08-26 11:56] MED LIST changes: -FLU VACC TS2017-18 (>65YR) 0.5 ML SYRINGE IM ONE; +Iopamidol-370 76% 500 ML MDV (1 ML CHARGE) ONE
== END 2023-08-26 11:57 | disposition home or self-care (01) ==
LOC: BICCT 11:56
PROVIDERS: ATTEND Internal Medicine Cardiovascular Disease
DX: R51.9 Headache, unspecified (principal)
CPT/HCPCS: 70470; 82565; Q9967

== ENCOUNTER 2024-06-15 12:32 | Emergency (ER) | payer MEDICARE ==
[2024-06-15] MEDS ORDERED: Lidocaine 1% w/Epinephrine 1:100K 20 ML VIAL ONE (13:37)
[2024-06-15] MEDS ORDERED: Bacitracin 1 PK ONE (13:37)
== END 2024-06-15 14:33 | disposition home or self-care (01) ==
LOC: ERS 12:32
DX: S05.31XA Ocular laceration without prolapse or loss of intraocular tissue, right eye, initial encounter (principal); S65.212A Laceration of superficial palmar arch of left hand, initial encounter; I48.91 Unspecified atrial fibrillation; W19.XXXA Unspecified fall, initial encounter
CPT/HCPCS: 12011; 70450; 70486; 72125